=== PATIENT | female | born 1960 | race Caucasian/White ===

== ENCOUNTER 2023-11-09 11:53 | Emergency (ER) | payer OTHER ==
[~2023-11-09] VITALS: Ht 157.5 cm; Wt 92.1 kg
[2023-11-09 12:35] VITALS: BP 137/65; PULSE 70; RESP 16; O2SAT 96
[2023-11-09] MEDS: LIDOCAINE 1% HCL (LOCAL ANESTH.) INJ 20ML MDV ONE (15:58)
[2023-11-09] MEDS: LIDOCAINE 1% (LOCAL ANESTH.) PF 5ml SDV ID ONE (15:59)
[2023-11-09] MEDS: NEOMYCIN-BACITRACIN-POLYM UNITDOSE PKG TOP OINT TOP ONE (16:01)
[2023-11-09] MEDS: TETANUS-DIPTH-ACEL PERTUSSIS 0.5ML SYR Tdap IM ONE (16:01)
[2023-11-09] MEDS ORDERED: CEPH500C PO (16:12)
== END 2023-11-09 16:23 | disposition home or self-care (01) ==
LOC: ER 11:53
DX: S61.412A Laceration without foreign body of left hand, initial encounter (principal); Z88.8 Allergy status to other drugs, medicaments and biological substances; Z79.899 Other long term (current) drug therapy; W26.8XXA Contact with other sharp object(s), not elsewhere classified, initial encounter; Y93.89 Activity, other specified; Y92.89 Other specified places as the place of occurrence of the external cause; Y99.8 Other external cause status
CPT/HCPCS: 12001; 90471; 90715; 99283; J2001